=== PATIENT | female | born 1965 | race Caucasian/White ===

== ENCOUNTER 2019-11-01 22:54 | Emergency (ER) | payer SELFPAY ==
[~2019-11-01] VITALS: Ht 160 cm; Wt 55.0 kg
[2019-11-02] MEDS ORDERED: LORAZEPAM 0.5MG TABLET PO ONE (01:30)
[2019-11-02 02:14] VITALS: BP 125/79
== END 2019-11-02 02:20 | disposition home or self-care (01) ==
LOC: ER 22:54
DX: F41.9 Anxiety disorder, unspecified (principal)
CPT/HCPCS: 99284